=== PATIENT | male | born 1950 | race Caucasian/White ===

== ENCOUNTER 2021-08-20 11:48 | Outpatient (CLI) | payer OTHER, SELFPAY ==
[2021-08-20] MEDS: 0.9% Saline Lock 10 ML Syringe IV (11:51)
[2021-08-20 11:52] VITALS: BP 134/79; PULSE 75; RESP 16; TEMP 36.4; O2SAT 97; BMI 29.8
[2021-08-20 12:20] VITALS: BP 109/64; PULSE 67; RESP 16; TEMP 36.5; O2SAT 96
[2021-08-20 13:20] VITALS: BP 113/73; PULSE 64; RESP 16; TEMP 37.1; O2SAT 97
== END 2021-08-20 23:59 | disposition home or self-care (01) ==
LOC: MS3OUT 11:48 → MS3 11:48
PROVIDERS: Referring Provider Nurse Practitioner Adult Health; Visit Provider Nurse Practitioner Adult Health
DX: Z23 Encounter for immunization (principal); U07.1 COVID-19
CPT/HCPCS: J7050; M0245; Q0245; A4216